=== PATIENT | male | born 1945 | race Caucasian/White ===

== ENCOUNTER → 2024-06-29 | Outpatient (CLI) | payer MEDICARE, BC, SELFPAY ==
[2024-06-29 14:23] LABS: Basophils % (Auto) 0 % (0-2.5); Eosinophils % (Auto) 0 % (0-10); Hematocrit 36.7 % (41.0-53.0); Hemoglobin 12.7 g/dL (13.5-16.0); Immature Granulocytes % (Auto) 1 % (0-0); Immature Granulocytes Auto 0.03 Thou/mm3 (0.00-0.00); Lymphocytes # (Auto) 1.6 Thou/mm3 (1.0-4.8); Lymphocytes % (Auto) 28 % (10-50); Mean Corpuscular HGB Conc 34.6 g/dl (31.0-37.0); Mean Corpuscular Hemoglobin 33.6 pg (25.0-35.0); Mean Corpuscular Volume 97 fL (80-100); Monocytes # (Auto) 0.5 Thou/mm3 (0.0-0.8); Monocytes % (Auto) 9 % (0-12); Neutrophils # (Auto) 3.5 Thou/mm3 (1.8-7.7); Neutrophils % (Auto) 63 % (37-80); Nucleated Red Blood Cell % 0 /100 WBC (0); Platelet Count 184 Thou/mm3 (140-440); RDW Standard Deviation 49.8 fL (35.1-43.9); Red Blood Count 3.78 Miln/mm3 (4.50-5.90); White Blood Count 5.6 Thou/mm3 (3.8-10.6)
[2024-06-29 14:55] LABS: Prostate Specific Antigen < 0.10 ng/mL (0-4.00)
[2024-06-29 14:56] LABS: Alanine Aminotransferase 31 U/L (10-49); Albumin, Serum 4.1 gm/dL (3.4-4.8); Albumin/Globulin Ratio 1.9 (1.2-2.2); Alkaline Phosphatase 93 U/L (46-116); Anion Gap 7 (7-16); Aspartate Amino Transferase 32 U/L (0-34); BUN/Creatinine Ratio 14 Ratio (12-20); Bilirubin,Total 0.7 mg/dL (0.3-1.2); Blood Urea Nitrogen 15 mg/dL (9-23); Calcium 9.3 mg/dL (8.3-10.6); Calcium (Corrected) 9.3 mg/dL (8.5-10.1); Carbon Dioxide 26.1 mMol/L (20.0-31.0); Chloride 107 mMol/L (98-107); Creatinine (Component) 1.1 mg/dL (0.6-1.3); Globulin 2.2 gm/dL (2.3-3.5); Glucose 95 mg/dL (74-106); Osmolality,Calculated 280 (275-295); Potassium 4.5 mMol/L (3.4-5.1); Sodium 140 mMol/L (136-145); Total Protein 6.3 gm/dL (5.7-8.2); eGFR > 60 See Note
== END | disposition home or self-care (01) ==
LOC: SCTO 13:43
PROVIDERS: PCP Family Medicine; Referring Provider Internal Medicine Hematology & Oncology; Visit Provider Internal Medicine Hematology & Oncology
DX: C61 Malignant neoplasm of prostate (principal)
CPT/HCPCS: 36415; 80053; 84153; 85025

== ENCOUNTER 2024-06-30 10:55 | Outpatient (RCR) | payer MEDICARE, BC, SELFPAY ==
--- NOTE | 2024-06-30 12:06 | CTCFLWUP_ITS ---
Patient: JAKY ENCISO : 1945 Page 2 of 2 FOLLOW UP NOTE DATE OF SERVICE: 06/30/2024 NAME: JAKY ENCISO ACCOUNT: [id number] : 1945 AGE: 79 INTERVAL HISTORY: Patient is doing well. He does get leg cramps at times. Patient otherwise doing well. ONCOLOGY HISTORY: DIAGNOSIS: Malignant neoplasm of prostate [ICD10] C61 DATE OF DIAGNOSIS: 9096 STAGE/TNM: Adenocarcinoma prostate TREATMENT HISTORY: Care?Plan Start?Date Cycle Day Intent HISTORY OF PRESENT ILLNESS: Jaky Enciso is a 79-year-old ENG speaking male with following oncology history. 1996: Patient had radical retropubic prostatectomy. 2001: Patient started noticing slowly increasing PSA levels. He was watched at [facility] in [facility] without any active intervention. 08/22/2017 PSA was 4.4. 09/11/2018 PSA 6.57. 11/06/2018: Patient had PET CT scan with PSMA?[address] of the neck chest abdomen and pelvis w ith IV contrast. Scan showed local PSMA activity in the posterior left prostatectomy bed suspicious for recurrence. 11/17/2018: Cystoscopy?evidence of radical prostatectomy, no evidence of cancerous lesions in the [place]. 11/26/2018: Patient had 6-month Lupron injection at [facility]. 12/23/2018?02/12/2019: Patient received 6660 cGy radiation to the prostate bed. 11/23/2019: PSA less than 0.10. 05/24/2020: PSA less than 0.10. 05/20/2023: PSA less than 0.10. 11/25/2023: PSA less than 0.10 12/16/2023: CT scan of the brain with and without contrast OTHER MEDICAL HISTORY/CONDITIONS: FAMILY HISTORY: SOCIAL HISTORY: MEDICATIONS: 1. No medications reported by patient - Medications Last Reconciled by Mely Vance MA on 06/30/2024 ALLERGIES: No Known Allergies REVIEW OF SYSTEMS: A complete 14-point review of systems was performed and is negative except as noted in interval histo ry. PHYSICAL EXAMINATION: VITAL SIGNS: Temperature?99.8, B/P?154/81, Oxygen?Saturation?96% Weight?194?lbs PAIN: 0 - No pain ECOG Performance Status: 1 - Symptomatic; ambulatory; restricted in strenuous activity GENERAL APPEARANCE: Appears well, in no apparent distress, appropriately interactive. HEENT: Normocephalic, no temporal wasting, normal conjunctiva, no scleral icterus, normal hearing, li ps without lesions, neck normal range of motion. CARDIOVASCULAR: Not assessed. PULMONARY: Normal respiratory effort, no respiratory distress or use of accessory muscles, speaking i n full sentences, no tachypnea. EXTREMITIES: No pedal edema or cyanosis. SKIN: Normal skin appearance. NEUROLOGIC: Alert and oriented x4. PSHYCHIATRIC: Appropriate affect, mood normal, behavior normal, intact thought and speech. LABORATORY DATA: I have personally reviewed and interpreted each of the patient?s relevant lab tests, abnormal finding s are below: Date 06/29/24 ??GLUCOSE,RANDOM?(mg/dL) 95 ??BLOOD?UREA?NITROGEN?(mg/dL) 15 ??CREATININE?(mg/dL) 1.10 ??SODIUM?(mmol/L) 140 ??POTASSIUM?(mmol/L) 4.5 ??CHLORIDE?(mmol/L) 107 ??CrCl?(CandG)?(ml/min) 67.78 ??AST/SGOT?(Unit/L) 32 ??ALT/SGPT?(Unit/L) 31 ??ALKALINE?PHOSPHATASE?(Unit/L) 93 ??BILIRUBIN,?TOTAL?(mg/dL) 0.7 ??PROTEIN?TOTAL?(gm/dl) 6.3 ??ALBUMIN,?SERUM?(gm/dl) 4.1 ??GLOBULIN?(gm/dl) 2.2?L ??ALBUMIN/GLOBULIN?RATIO 1.9 ??CALCIUM,?SERUM?(mg/dL) 9.3 ??CALCIUM?SERUM?(CORRECTED)?(mg/dL) 9.3 ASSESSMENT/PLAN: 1. History of prostate cancer PSA less than 0.01 Locally recurrent prostate cancer status post radiation therapy. No clinical evidence of recurrence. 2. Patient used to have headaches and had CT scan of the brain with and without contrast is negative for any abnormalities-resolved 3. History of exposure to asbestos in the past. Denies any history of smoking. CT scan showed bronc hiectasis. 4. Anemia-patient have slowly developed anemia over last 2 years. Will check iron studies B12 folic acid LDH haptoglobin erythropoietin and testosterone level I will see him back in clinic in 6 months with CBC, CMP, PSA done prior to the visit. CBC CMP ferritin iron studies B12 folic acid LDH haptoglobin erythropoietin RETURN TO CLINIC: 4 weeks with a telephone appointment BILLING AND COMPLIANCE: I reviewed external records from providers outside my specialty as summarized above. I spent a total of 50 minutes on this patient?s care on the day of their visit excluding time spent related to any bi lled procedures. This time includes time spent with the patient as well as time spent documenting in the medical record, reviewing patients records and tests, obtaining history, placing orders, communi cating with other healthcare professionals, counseling the patient, family or caregiver, and/or care coordination for the diagnoses above. Electronically Signed by: Lucas Duron MD T: 12:04 PM CC: PCP: Aminah Varma Referring: Aminah Varma This document was completed utilizing speech recognition software. Grammatical errors, random word in sertions, pronoun errors, and incomplete sentences are an occasional consequence of this system due t o software limitations, ambient noise, and hardware issues. Any formal questions or concerns about th e content, text or information contained within the body of this dictation should be directly address ed to the provider for clarification.
== END 2024-07-09 23:59 | disposition home or self-care (01) ==
LOC: SCTC 10:55
PROVIDERS: PCP Family Medicine; Referring Provider Family Medicine; Visit Provider Internal Medicine Hematology & Oncology
DX: Z08 Encounter for follow-up examination after completed treatment for malignant neoplasm (principal); Z85.46 Personal history of malignant neoplasm of prostate; Z92.3 Personal history of irradiation; J47.9 Bronchiectasis, uncomplicated; D64.9 Anemia, unspecified
CPT/HCPCS: 99212; G0463

== ENCOUNTER → 2024-06-30 | Outpatient (CLI) | payer MEDICARE, BC, SELFPAY ==
[2024-06-30 12:53] LABS: Basophils % (Auto) 0 % (0-2.5); Eosinophils % (Auto) 0 % (0-10); Hematocrit 40.3 % (41.0-53.0); Hemoglobin 13.7 g/dL (13.5-16.0); Immature Granulocytes % (Auto) 1 % (0-0); Immature Granulocytes Auto 0.02 Thou/mm3 (0.00-0.00); Immature Reticulocyte Fraction 22.6 % (2.3-13.4); Lymphocytes # (Auto) 1.2 Thou/mm3 (1.0-4.8); Lymphocytes % (Auto) 29 % (10-50); Mean Corpuscular Hemoglobin 33.7 pg (25.0-35.0); Mean Corpuscular Volume 99 fL (80-100); Monocytes # (Auto) 0.4 Thou/mm3 (0.0-0.8); Monocytes % (Auto) 10 % (0-12); Neutrophils # (Auto) 2.6 Thou/mm3 (1.8-7.7); Neutrophils % (Auto) 60 % (37-80); Nucleated Red Blood Cell % 0 /100 WBC (0); Platelet Count 179 Thou/mm3 (140-440); RDW Standard Deviation 50.8 fL (35.1-43.9); Red Blood Count 4.06 Miln/mm3 (4.50-5.90); Reticulocyte % (Auto) 2.9 % (0.5-1.5); Reticulocyte Absolute Auto 118.1 Biln/L (25.0-75.0); White Blood Count 4.3 Thou/mm3 (3.8-10.6)
[2024-06-30 13:19] LABS: Alanine Aminotransferase 34 U/L (10-49); Albumin, Serum 4.7 gm/dL (3.4-4.8); Albumin/Globulin Ratio 2.1 (1.2-2.2); Alkaline Phosphatase 86 U/L (46-116); Anion Gap 7 (7-16); Aspartate Amino Transferase 37 U/L (0-34); BUN/Creatinine Ratio 13 Ratio (12-20); Bilirubin,Total 0.9 mg/dL (0.3-1.2); Blood Urea Nitrogen 13 mg/dL (9-23); Calcium 9.5 mg/dL (8.3-10.6); Calcium (Corrected) 9.5 mg/dL (8.5-10.1); Carbon Dioxide 27.9 mMol/L (20.0-31.0); Chloride 104 mMol/L (98-107); Globulin 2.2 gm/dL (2.3-3.5); Glucose 96 mg/dL (74-106); LDH (Lactate Dehydrogenase) 279 U/L (120-246); Osmolality,Calculated 277 (275-295); Potassium 4.7 mMol/L (3.4-5.1); Sodium 139 mMol/L (136-145); Total Protein 6.9 gm/dL (5.7-8.2); eGFR > 60 See Note
[2024-06-30 13:27] LABS: Folate > 24.00 ng/mL (>5.38); Vitamin B12 1082 pg/mL (211-911)
[2024-06-30 14:26] LABS: Ferritin 84 ng/mL (10.5-307.3); Total Iron Binding Capacity 327 mcg/dL (250-425)
[2024-06-30 14:37] LABS: Iron 138 mcg/dL (65-175); Percent Iron Saturation 42 % (20-55); Unsaturated Iron Binding 189 (225-295)
[2024-07-08 06:36] LABS: Erythropoietin (EPO)* 33.6 mIU/mL (2.6-18.5)
[2024-07-08 06:37] LABS: Haptoglobin* 85 mg/dL (43-212); Testosterone,Total* 905 ng/dL (250-1100)
== END | disposition home or self-care (01) ==
PROVIDERS: PCP Family Medicine; Referring Provider Internal Medicine Hematology & Oncology; Visit Provider Internal Medicine Hematology & Oncology
DX: C61 Malignant neoplasm of prostate (principal)
CPT/HCPCS: 36415; 80053; 82607; 82668; 82728; 82746; 83010; 83540; 83550; 83615; 84403; 85025; 85046

== ENCOUNTER → 2024-07-13 | Outpatient (CLI) | payer MEDICARE, BC, SELFPAY ==
[2024-07-13 16:31] LABS: Basophils % (Auto) 0 % (0-2.5); Eosinophils % (Auto) 0 % (0-10); Hematocrit 37.8 % (41.0-53.0); Hemoglobin 12.8 g/dL (13.5-16.0); Immature Granulocytes % (Auto) 0 % (0-0); Immature Granulocytes Auto 0.01 Thou/mm3 (0.00-0.00); Lymphocytes # (Auto) 1.7 Thou/mm3 (1.0-4.8); Lymphocytes % (Auto) 34 % (10-50); Mean Corpuscular HGB Conc 33.9 g/dl (31.0-37.0); Mean Corpuscular Hemoglobin 33.3 pg (25.0-35.0); Mean Corpuscular Volume 98 fL (80-100); Monocytes # (Auto) 0.5 Thou/mm3 (0.0-0.8); Monocytes % (Auto) 10 % (0-12); Neutrophils # (Auto) 2.7 Thou/mm3 (1.8-7.7); Neutrophils % (Auto) 56 % (37-80); Nucleated Red Blood Cell % 0 /100 WBC (0); Platelet Count 197 Thou/mm3 (140-440); RDW Standard Deviation 48.8 fL (35.1-43.9); Red Blood Count 3.84 Miln/mm3 (4.50-5.90); White Blood Count 4.9 Thou/mm3 (3.8-10.6)
[2024-07-13 17:19] LABS: Path Review Blood Smear Sent to Pathologist
== END | disposition home or self-care (01) ==
LOC: COPL 15:57
PROVIDERS: PCP Family Medicine; Referring Provider Family Medicine; Visit Provider Family Medicine
DX: E61.1 Iron deficiency (principal)
CPT/HCPCS: 36415; 85025

== ENCOUNTER 2024-07-27 10:29 | Outpatient (RCR) | payer MEDICARE, BC, SELFPAY ==
--- NOTE | 2024-07-27 11:31 | CTCFLWUP_ITS ---
Patient: JAKY ENCISO : 1945 Page 2 of 2 FOLLOW UP NOTE DATE OF SERVICE: 07/27/2024 NAME: JAKY ENCISO ACCOUNT: [id number] : 1945 AGE: 79 INTERVAL HISTORY: Patient is doing well. He does get leg cramps at times. Patient otherwise doing well. ONCOLOGY HISTORY: DIAGNOSIS: Malignant neoplasm of prostate [ICD10] C61 DATE OF DIAGNOSIS: 11/06/2018 STAGE/TNM: Adenocarcinoma prostate TREATMENT HISTORY: Care?Plan Start?Date Cycle Day Intent HISTORY OF PRESENT ILLNESS: Jaky Enciso is a 79-year-old ENG speaking male with following oncology history. 1996: Patient had radical retropubic prostatectomy. 2001: Patient started noticing slowly increasing PSA levels. He was watched at [facility] in [place] without any active intervention. 08/22/2017 PSA was 4.4. 09/11/2018 PSA 6.57. 11/06/2018: Patient had PET CT scan with PSMA?[address] of the neck chest abdomen and pelvis with IV contrast. Scan showed local PSMA activity in the posterior left prostatectomy bed suspicious for recurrence. 11/17/2018: Cystoscopy?evidence of radical prostatectomy, no evidence of cancerous lesions in the bladder. 11/26/2018: Patient had 6-month Lupron injection at [facility]. 12/23/2018?02/12/2019: Patient received 6660 cGy radiation to the prostate bed. 11/23/2019: PSA less than 0.10. 05/24/2020: PSA less than 0.10. 05/20/2023: PSA less than 0.10. 11/25/2023: PSA less than 0.10 12/16/2023: CT scan of the brain with and without contrast OTHER MEDICAL HISTORY/CONDITIONS: FAMILY HISTORY: SOCIAL HISTORY: MEDICATIONS: 1. No medications reported by patient - Medications Last Reconciled by Mely Vance MA on 07/27/2024 ALLERGIES: No Known Allergies REVIEW OF SYSTEMS: A complete 14-point review of systems was performed and is negative except as noted in interval history. PHYSICAL EXAMINATION: VITAL SIGNS: Temperature?99.7, B/P?149/74, Oxygen?Saturation?98% Weight?193?lbs (Change?since?06/30/24:?-1?lbs) PAIN: 0 - No pain ECOG Performance Status: 0 - Asymptomatic and fully active GENERAL APPEARANCE: Appears well, in no apparent distress, appropriately interactive. HEENT: Normocephalic, no temporal wasting, normal conjunctiva, no scleral icterus, normal hearing, lips without lesions, neck normal range of motion. CARDIOVASCULAR: Not assessed. PULMONARY: Normal respiratory effort, no respiratory distress or use of accessory muscles, speaking in full sentences, no tachypnea. EXTREMITIES: No pedal edema or cyanosis. SKIN: Normal skin appearance. NEUROLOGIC: Alert and oriented x4. PSHYCHIATRIC: Appropriate affect, mood normal, behavior normal, intact thought and speech. LABORATORY DATA: I have personally reviewed and interpreted each of the patient?s relevant lab tests, abnormal findings are below: Date 07/13/24 ??WHITE?BLOOD?COUNT?(Thou/mm3) 4.9 ??RED?BLOOD?COUNT?(Miln/mm3) 3.84?L ??HEMOGLOBIN?(gm/dl) 12.8?L ??HEMATOCRIT?(%) 37.8?L ??PLATELET?COUNT?(Thou/mm3) 197 ??NEUTROPHILS?%,?AUTO?(%) 56 ??LYMPH?%,?AUTO?(%) 34 ??NEUTROPHILS,?AUTO?(Thou/mm3) 2.7 ASSESSMENT/PLAN: 1. History of prostate cancer PSA less than 0.01 Locally recurrent prostate cancer status post radiation therapy. No clinical evidence of recurrence. 2. Patient used to have headaches and had CT scan of the brain with and without contrast is negative for any abnormalities-resolved 3. History of exposure to asbestos in the past. Denies any history of smoking. CT scan showed bronchiectasis. 4. Anemia-patient have slowly developed anemia over last 2 years. Will check iron studies B12 folic acid LDH haptoglobin erythropoietin and testosterone level I will see him back in clinic in 4 months with CBC, CMP, PSA done prior to the visit. I reviewed CBC CMP ferritin iron studies B12 folic acid LDH haptoglobin erythropoietin--. Patient's all labs are within normal limit except LDH which is elevated along with a globulin. I discussed with Mr. Enciso that I would like to check serum amino pheresis and serum electrophoresis to make sure patient do not have any myeloma. Patient would like to wait for blood work further blood work for another appointment Discussed with him and the labs orders placed Patient would like to do it in 3 to 4 months CBC CMP SPEP serum amino pheresis immunoglobulin pheresis RETURN TO CLINIC: 4 months BILLING AND COMPLIANCE: I reviewed external records from providers outside my specialty as summarized above. I spent a total of 50 minutes on this patient?s care on the day of their visit excluding time spent related to any billed procedures. This time includes time spent with the patient as well as time spent documenting in the medical record, reviewing patients records and tests, obtaining history, placing orders, communicating with other healthcare professionals, counseling the patient, family or caregiver, and/or care coordination for the diagnoses above. Electronically Signed by: Lucas Duron MD T: 11:29 AM CC: PCP: Aminah Varma Referring: Aminah Varma This document was completed utilizing speech recognition software. Grammatical errors, random word insertions, pronoun errors, and incomplete sentences are an occasional consequence of this system due to software limitations, ambient noise, and hardware issues. Any formal questions or concerns about the content, text or information contained within the body of this dictation should be directly addressed to the provider for clarification.
== END 2024-08-06 23:59 | disposition home or self-care (01) ==
LOC: SCTC 10:29
PROVIDERS: PCP Family Medicine; Referring Provider Family Medicine; Visit Provider Internal Medicine Hematology & Oncology
DX: Z08 Encounter for follow-up examination after completed treatment for malignant neoplasm (principal); Z85.46 Personal history of malignant neoplasm of prostate; Z92.3 Personal history of irradiation; D64.9 Anemia, unspecified
CPT/HCPCS: 99212; G0463

== ENCOUNTER → 2024-09-30 | Outpatient (CLI) | payer MEDICARE, BC, SELFPAY ==
--- NOTE | 2024-09-30 | XR_ITS ---
Examination: Sinus series 4 views Technique Saurav dubois submentovertex sinus series 4 views Exam date and time: September 30, 2024 1328 hours INDICATIONS: Sinus pressure and pain one week. FINDINGS: Mild opacity in the frontal, ethmoid air cells, maxillary antra and sphenoid air cells No fluid levels No retention cysts IMPRESSION: Chronic pansinusitis
== END | disposition home or self-care (01) ==
LOC: CDIM 11:45
PROVIDERS: PCP Family Medicine; Referring Provider Family Medicine; Visit Provider Family Medicine
DX: J32.4 Chronic pansinusitis (principal)
CPT/HCPCS: 70220

== ENCOUNTER → 2024-11-18 | Outpatient (CLI) | payer MEDICARE, BC, SELFPAY ==
[2024-11-18 08:46] LABS: Basophils % (Auto) 0 % (0-2.5); Eosinophils % (Auto) 0 % (0-10); Hematocrit 38.5 % (41.0-53.0); Hemoglobin 13.4 g/dL (13.5-16.0); Immature Granulocytes % (Auto) 0 % (0-0); Lymphocytes # (Auto) 1.2 Thou/mm3 (1.0-4.8); Lymphocytes % (Auto) 29 % (10-50); Mean Corpuscular HGB Conc 34.8 g/dl (31.0-37.0); Mean Corpuscular Volume 98 fL (80-100); Monocytes # (Auto) 0.3 Thou/mm3 (0.0-0.8); Monocytes % (Auto) 8 % (0-12); Neutrophils # (Auto) 2.6 Thou/mm3 (1.8-7.7); Neutrophils % (Auto) 63 % (37-80); Nucleated Red Blood Cell % 0 /100 WBC (0); Platelet Count 175 Thou/mm3 (140-440); RDW Standard Deviation 51.8 fL (35.1-43.9); Red Blood Count 3.94 Miln/mm3 (4.50-5.90); White Blood Count 4.2 Thou/mm3 (3.8-10.6)
[2024-11-18 08:53] LABS: Prostate Specific Antigen < 0.10 ng/mL (0-4.00)
[2024-11-18 09:02] LABS: Alanine Aminotransferase 29 U/L (10-49); Albumin, Serum 4.5 gm/dL (3.4-4.8); Alkaline Phosphatase 89 U/L (46-116); Anion Gap 11 (7-16); BUN/Creatinine Ratio 12 Ratio (12-20); Blood Urea Nitrogen 12 mg/dL (9-23); Calcium 9.1 mg/dL (8.3-10.6); Calcium (Corrected) 9.1 mg/dL (8.5-10.1); Carbon Dioxide 27.2 mMol/L (20.0-31.0); Chloride 106 mMol/L (98-107); Globulin 2.2 gm/dL (2.3-3.5); Glucose 108 mg/dL (74-106); Osmolality,Calculated 287 (275-295); Potassium 4.5 mMol/L (3.4-5.1); Sodium 144 mMol/L (136-145); Total Protein 6.7 gm/dL (5.7-8.2); eGFR > 60 See Note
[2024-11-26 15:35] LABS: Albumin 4.3 g/dL (3.8-4.8); Alpha-1-Globulin 0.2 g/dL (0.2-0.3); Alpha-2-Globulin 0.7 g/dL (0.5-0.9); Beta-1-Globulin 0.4 g/dL (0.4-0.6); Beta-2-globulin 0.3 g/dL (0.2-0.5); Gamma Globulin 0.9 g/dL (0.8-1.7); Immunoglobulin A 133 mg/dL (70-320); Immunoglobulin G 951 mg/dL (600-1540)
[2024-11-29 06:52] LABS: Beta 2 Microglobulin 1.92 mg/L (< OR = 2.51); Immunoglobulin M 47 mg/dL (50-300); Protein, total, serum 6.7 g/dL (6.1-8.1)
== END | disposition home or self-care (01) ==
LOC: SCTO 07:16
PROVIDERS: PCP Family Medicine; Referring Provider Internal Medicine Hematology & Oncology; Visit Provider Internal Medicine Hematology & Oncology
DX: C61 Malignant neoplasm of prostate (principal); E61.1 Iron deficiency
CPT/HCPCS: 36415; 80053; 82232; 82784; 84153; 84155; 84165; 85025; 86334

== ENCOUNTER 2024-11-24 11:24 | Outpatient (RCR) | payer MEDICARE, BC, SELFPAY ==
--- NOTE | 2024-11-29 01:52 | CTCFLWUP_ITS ---
Patient: EARL ENCISO : 1945 Page 2 of 4 FOLLOW UP NOTE DATE OF SERVICE: 11/24/2024 NAME: EARL ENCISO ACCOUNT: [id number] : 1945 AGE: 79 INTERVAL HISTORY: Patient doing well with no new complaints ONCOLOGY HISTORY: DIAGNOSIS: Malignant neoplasm of prostate [ICD10] C61 DATE OF DIAGNOSIS: 11/06/2018 STAGE/TNM: Adenocarcinoma prostate TREATMENT HISTORY: Care?Plan Start?Date Cycle Day Intent HISTORY OF PRESENT ILLNESS: Earl Enciso is a 79-year-old ENG speaking male with following oncology history. 1996: Patient had radical retropubic prostatectomy. 2001: Patient started noticing slowly increasing PSA levels. He was watched at [facility] in [place] without any active intervention. 08/22/2017 PSA was 4.4. 09/11/2018 PSA 6.57. 11/06/2018: Patient had PET CT scan with PSMA?[address] of the neck chest abdomen and pelvis with IV contrast. Scan showed local PSMA activity in the posterior left prostatectomy bed suspicious for recurrence. 11/17/2018: Cystoscopy?evidence of radical prostatectomy, no evidence of cancerous lesions in the bladder. 11/26/2018: Patient had 6-month Lupron injection at [facility]. 12/23/2018?02/12/2019: Patient received 6660 cGy radiation to the prostate bed. 11/23/2019: PSA less than 0.10. 05/24/2020: PSA less than 0.10. 05/20/2023: PSA less than 0.10. 11/25/2023: PSA less than 0.10 12/16/2023: CT scan of the brain with and without contrast OTHER MEDICAL HISTORY/CONDITIONS: FAMILY HISTORY: SOCIAL HISTORY: MEDICATIONS: 1. No medications reported by patient - Medications Last Reconciled by Lacy Haynes MA on 11/24/2024 ALLERGIES: No Known Allergies REVIEW OF SYSTEMS: A complete 14-point review of systems was performed and is negative except as noted in interval history. PHYSICAL EXAMINATION: VITAL SIGNS: Temperature?98.2, B/P?149/84, Oxygen?Saturation?95% Weight?190?lbs PAIN: 0 - No pain ECOG Performance Status: PSA less than 0.1 0 - Asymptomatic and fully active GENERAL APPEARANCE: Appears well, in no apparent distress, appropriately interactive. HEENT: Normocephalic, no temporal wasting, normal conjunctiva, no scleral icterus, normal hearing, lips without lesions, neck normal range of motion. CARDIOVASCULAR: Not assessed. PULMONARY: Normal respiratory effort, no respiratory distress or use of accessory muscles, speaking in full sentences, no tachypnea. EXTREMITIES: No pedal edema or cyanosis. SKIN: Normal skin appearance. NEUROLOGIC: Alert and oriented x4. PSHYCHIATRIC: Appropriate affect, mood normal, behavior normal, intact thought and speech. LABORATORY DATA: I have personally reviewed and interpreted each of the patient?s relevant lab tests, abnormal findings are below: Date 06/30/24 07/13/24 11/18/24 ??WHITE?BLOOD?COUNT?(Thou/mm3) ? 4.9 4.2 ??RED?BLOOD?COUNT?(Miln/mm3) ? 3.84?L 3.94?L ??HEMOGLOBIN?(gm/dl) ? 12.8?L 13.4?L ??HEMATOCRIT?(%) ? 37.8?L 38.5?L ??PLATELET?COUNT?(Thou/mm3) ? 197 175 ??NEUTROPHILS?%,?AUTO?(%) ? 56 63 ??LYMPH?%,?AUTO?(%) ? 34 29 ??NEUTROPHILS,?AUTO?(Thou/mm3) ? 2.7 2.6 ??GLUCOSE,RANDOM?(mg/dL) ? ? 108?H ??BLOOD?UREA?NITROGEN?(mg/dL) ? ? 12 ??CREATININE?(mg/dL) ? ? 1.00 ??SODIUM?(mmol/L) ? ? 144 ??POTASSIUM?(mmol/L) ? ? 4.5 ??CHLORIDE?(mmol/L) ? ? 106 ??CrCl?(CandG)?(ml/min) ? ? 74.17 ??ALT/SGPT?(Unit/L) ? ? 29 ??ALKALINE?PHOSPHATASE?(Unit/L) ? ? 89 ??BILIRUBIN,?TOTAL?(mg/dL) ? ? 1.0 ??PROTEIN?TOTAL?(gm/dl) ? ? 6.7 ??ALBUMIN,?SERUM?(gm/dl) ? ? 4.5 ??GLOBULIN?(gm/dl) ? ? 2.2?L ??ALBUMIN/GLOBULIN?RATIO ? ? 2.0 ??CALCIUM,?SERUM?(mg/dL) ? ? 9.1 ??CALCIUM?SERUM?(CORRECTED)?(mg/dL) ? ? 9.1 ??RETICULOCYTE?ABSOLUTE?AUTO?(Biln/L) 118.1?H ? ? PSA less than 0.01 ASSESSMENT/PLAN: 1. History of prostate cancer PSA less than 0.01 Locally recurrent prostate cancer status post radiation therapy. No clinical evidence of recurrence. Patient have very mild anemia which has improved since the last visit. Patient have not done myeloma labs ordered at the last visit will reorder labs. 2. History of exposure to asbestos in the past. Denies any history of smoking. CT scan showed bronchiectasis. I reviewed CBC CMP ferritin iron studies B12 folic acid LDH haptoglobin erythropoietin--. Patient's all labs are within normal limit except LDH which is elevated along with a globulin. I discussed with Mr. Enciso that I would like to check serum amino pheresis and serum electrophoresis to make sure patient do not have any myeloma. Patient would like to wait for blood work further blood work for another appointment Discussed with him and the labs orders placed Patient would like to do it in 3 to 4 months CBC CMP SPEP PSA serum amino pheresis immunoglobulin pheresis RETURN TO CLINIC: BILLING AND COMPLIANCE: I reviewed external records from providers outside my specialty as summarized above. I spent a total of 50 minutes on this patient?s care on the day of their visit excluding time spent related to any billed procedures. This time includes time spent with the patient as well as time spent documenting in the medical record, reviewing patients records and tests, obtaining history, placing orders, communicating with other healthcare professionals, counseling the patient, family or caregiver, and/or care coordination for the diagnoses above. Electronically Signed by: Lucas Duron MD T: 1:50 AM CC: PCP: Lucas Duron Referring: Lucas Duron This document was completed utilizing speech recognition software. Grammatical errors, random word insertions, pronoun errors, and incomplete sentences are an occasional consequence of this system due to software limitations, ambient noise, and hardware issues. Any formal questions or concerns about the content, text or information contained within the body of this dictation should be directly addressed to the provider for clarification.
== END 2024-12-06 23:59 | disposition home or self-care (01) ==
LOC: SCTC 11:24
PROVIDERS: PCP Family Medicine; Referring Provider Internal Medicine Hematology & Oncology; Visit Provider Internal Medicine Hematology & Oncology
DX: Z08 Encounter for follow-up examination after completed treatment for malignant neoplasm (principal); Z85.46 Personal history of malignant neoplasm of prostate; Z90.79 Acquired absence of other genital organ(s); Z77.090 Contact with and (suspected) exposure to asbestos; J47.9 Bronchiectasis, uncomplicated
CPT/HCPCS: 99212; G0463

== ENCOUNTER 2025-04-26 07:00 | Day surgery (SDC) | payer MEDICARE, BC, SELFPAY ==
[2025-04-25 14:05] VITALS: BMI 26.5
[2025-04-26] VITALS (10 sets, daily range): BP systolic 121–144; BP diastolic 71–91; PULSE 60–74; RESP 13–20; TEMP 36.2–36.7; O2SAT 96–100; BMI 26.5
[2025-04-26] MEDS: SODIUM CHLORIDE 0.9% 500 ML 500 ML 100 ML IV (08:01)
[2025-04-26] MEDS: MIDAZOLAM INJ 1 MG/ML VIAL 2 ML (ASD USE ONLY) 2 MG IVP (08:01)
[2025-04-26] MEDS: fentaNYL CIT INJ 50 mCg/ML AMP 2ML (ASD USE ONLY) IVP (08:01)
== END 2025-04-26 08:50 | disposition home or self-care (01) ==
PROVIDERS: PCP Family Medicine; Referring Provider Surgery; Visit Provider Surgery
PROC: 0DBE8ZX Excision of Large Intestine, Via Natural or Artificial Opening Endoscopic, Diagnostic (ICD-10-PCS; CPT 45380; principal; 2025-04-26 08:00)
DX: D12.2 Benign neoplasm of ascending colon (principal); K63.89 Other specified diseases of intestine; K64.1 Second degree hemorrhoids; K57.30 Diverticulosis of large intestine without perforation or abscess without bleeding; K62.5 Hemorrhage of anus and rectum
CPT/HCPCS: 45380; A4649; J1200; J2250; J3010; J7999

== ENCOUNTER → 2025-06-08 | Outpatient (CLI) | payer MEDICARE, BC, SELFPAY ==
[2025-06-08 12:03] LABS: Basophils # (Auto) 0.0 Thou/mm3 (0.0-0.2); Basophils % (Auto) 0 % (0-2.5); Eosinophils # (Auto) 0.0 Thou/mm3 (0.0-0.5); Eosinophils % (Auto) 0 % (0-10); Hematocrit 38.5 % (41.0-53.0); Hemoglobin 12.7 g/dL (13.5-16.0); Immature Granulocytes Auto 0.00 Thou/mm3 (0.00-0.00); Lymphocytes # (Auto) 1.4 Thou/mm3 (1.0-4.8); Lymphocytes % (Auto) 40 % (10-50); Mean Corpuscular HGB Conc 33.0 g/dl (31.0-37.0); Mean Corpuscular Hemoglobin 32.6 pg (25.0-35.0); Mean Corpuscular Volume 99 fL (80-100); Monocytes # (Auto) 0.4 Thou/mm3 (0.0-0.8); Monocytes % (Auto) 11 % (0-12); Neutrophils # (Auto) 1.7 Thou/mm3 (1.8-7.7); Neutrophils % (Auto) 49 % (37-80); Nucleated Red Blood Cell # 0.00 Thou/mm3 (0.00-0.00); Nucleated Red Blood Cell % 0 /100 WBC (0); Platelet Count 145 Thou/mm3 (140-440); RDW Standard Deviation 54.0 fL (35.1-43.9); Red Blood Count 3.89 Miln/mm3 (4.50-5.90); White Blood Count 3.5 Thou/mm3 (3.8-10.6)
[2025-06-08 12:14] LABS: Prostate Specific Antigen < 0.10 ng/mL (0-4.00)
[2025-06-08 12:21] LABS: Alanine Aminotransferase 33 U/L (10-49); Albumin, Serum 4.2 gm/dL (3.4-4.8); Albumin/Globulin Ratio 1.8 (1.2-2.2); Alkaline Phosphatase 94 U/L (46-116); Anion Gap 7 (7-16); Aspartate Amino Transferase 43 U/L (0-34); BUN/Creatinine Ratio 13 Ratio (12-20); Bilirubin,Total 1.0 mg/dL (0.3-1.2); Blood Urea Nitrogen 12 mg/dL (9-23); Calcium 8.9 mg/dL (8.3-10.6); Calcium (Corrected) 8.9 mg/dL (8.5-10.1); Carbon Dioxide 27.6 mMol/L (20.0-31.0); Chloride 108 mMol/L (98-107); Creatinine (Component) 0.9 mg/dL (0.6-1.3); Globulin 2.4 gm/dL (2.3-3.5); Glucose 102 mg/dL (74-106); Osmolality,Calculated 284 (275-295); Potassium 4.9 mMol/L (3.4-5.1); Sodium 143 mMol/L (136-145); Total Protein 6.6 gm/dL (5.7-8.2); eGFR > 60 See Note
== END | disposition home or self-care (01) ==
LOC: SCTO 11:17
PROVIDERS: PCP Family Medicine; Referring Provider Internal Medicine Hematology & Oncology; Visit Provider Internal Medicine Hematology & Oncology
DX: C61 Malignant neoplasm of prostate (principal)
CPT/HCPCS: 36415; 80053; 84153; 85025